=== PATIENT | male | born 1945 | race Caucasian/White ===

== ENCOUNTER 2017-01-30 09:14 | Outpatient (CLI) | payer MEDICARE ==
[2017-01-30 10:12] LABS: ALT (SGPT) 8 U/L (8-55); AST (SGOT) 11 U/L (5-34); Alkaline Phosphatase 88 U/L (40-150); Anion Gap 13 mmol/L (10-20); BUN (Urea Nitrogen) 22 mg/dL (8.4-25.7); Bilirubin, Total 0.4 mg/dL (0.2-1.2); Calc. Creatinine Clearance 0 mL/min (70-130); Calcium 9.1 mg/dL (7.8-10.44); Carbon Dioxide 26 mmol/L (23-31); Cardiac Risk 2.6 (Less than 4.5); Chloride 106 mmol/L (98-107); Cholesterol 136 mg/dl (< 200 Desired); Estimated GFR-MDRD 61; Globulin 3.6 g/dL (2.4-3.5); Glucose 158 mg/dL (83-110); HDL Cholesterol 52 mg/dL (>60 Neg Risk); LDL Cholesterol, Calculated 68 mg/dL; Magnesium 1.9 mg/dL (1.6-2.6); Potassium 4.3 mmol/L (3.5-5.1); Protein, Total 7.6 g/dL (5.8-8.1); Sodium 141 mmol/L (136-145); Triglycerides 78 mg/dL (Less than 150)
== END 2017-01-30 09:15 | disposition home or self-care (01) ==
LOC: MADLAB 09:14
DX: E11.9 Type 2 diabetes mellitus without complications (principal); I34.8 Other nonrheumatic mitral valve disorders; I25.10 Atherosclerotic heart disease of native coronary artery without angina pectoris; I50.22 Chronic systolic (congestive) heart failure
CPT/HCPCS: 36415; 80053; 80061; 83735

== ENCOUNTER 2017-02-03 10:28 | Outpatient (CLI) | payer MEDICARE ==
[2017-02-03 11:02] LABS: Hemoglobin 11.5 g/dL (14.0-18.0); Mean Corpuscular HGB CONC 30.9 g/dL (32.0-36.0); Mean Corpuscular Hemoglobin 24.9 pg (27.0-31.0); Mean Corpuscular Volume 80.6 fl (80.0-94.0); Mean Platelet Volume 7.8 fL (7.4-10.4); Platelet Count 251 thou/uL (130-400); RBC Distribution Width 16.1 % (11.5-14.5); Red Blood Cell (RBC) Count 4.62 mill/uL (4.70-6.10); White Blood Cell (WBC) Count 9.3 thou/uL (4.8-10.8)
[2017-02-03 15:42] LABS: ALT (SGPT) 9 U/L (8-55); AST (SGOT) 13 U/L (5-34); Albumin 3.8 g/dL (3.4-4.8); Alkaline Phosphatase 83 U/L (40-150); Anion Gap 14 mmol/L (10-20); BUN (Urea Nitrogen) 26 mg/dL (8.4-25.7); Bilirubin, Total 0.3 mg/dL (0.2-1.2); Calc. Creatinine Clearance 0 mL/min (70-130); Calcium 9.2 mg/dL (7.8-10.44); Carbon Dioxide 26 mmol/L (23-31); Chloride 105 mmol/L (98-107); Estimated GFR-MDRD 55; Globulin 3.1 g/dL (2.4-3.5); Glucose 143 mg/dL (83-110); Potassium 4.6 mmol/L (3.5-5.1); Protein, Total 6.9 g/dL (5.8-8.1); Sodium 140 mmol/L (136-145)
== END 2017-02-03 10:29 | disposition home or self-care (01) ==
LOC: MADLAB 10:28
PROVIDERS: ATTEND Internal Medicine Cardiovascular Disease
DX: E87.1 Hypo-osmolality and hyponatremia (principal); I70.219 Atherosclerosis of native arteries of extremities with intermittent claudication, unspecified extremity; I25.10 Atherosclerotic heart disease of native coronary artery without angina pectoris; I95.89 Other hypotension
CPT/HCPCS: 36415; 80053; 85027

== ENCOUNTER 2017-04-06 11:53 | Outpatient (CLI) | payer MEDICARE ==
[2017-04-06 12:31] LABS: #Basophils 0.1 thou/uL (0.0-0.2); #Eosinphils 0.3 thou/uL (0.0-0.7); #Lymphocytes 2.5 thou/uL (1.20-3.40); #Monocytes 0.8 thou/uL (0.11-0.59); %Basophils 1.4 % (0.0-1.0); %Eosinophils 2.7 % (0.0-10.0); %Lymphocytes 25.8 % (21.0-51.0); %Monocytes 8.4 % (0.0-10.0); %Neutrophils 61.7 % (42.0-75.0); Hemoglobin 11.4 g/dL (14.0-18.0); Mean Corpuscular HGB CONC 31.6 g/dL (32.0-36.0); Mean Corpuscular Hemoglobin 25.3 pg (27.0-31.0); Mean Corpuscular Volume 80.3 fl (80.0-94.0); Mean Platelet Volume 7.9 fL (7.4-10.4); Platelet Count 244 thou/uL (130-400); RBC Distribution Width 16.5 % (11.5-14.5); Red Blood Cell (RBC) Count 4.49 mill/uL (4.70-6.10); White Blood Cell (WBC) Count 9.8 thou/uL (4.8-10.8)
[2017-04-06 12:34] LABS: INR-International Normal Ratio 1.1; PTT 31.1 SEC (22.9-36.1); Prothrombin Time 14.1 SEC (12.0-14.7)
[2017-04-06 12:42] LABS: Anion Gap 16 mmol/L (10-20); BUN (Urea Nitrogen) 34 mg/dL (8.4-25.7); Calc. Creatinine Clearance 0 mL/min (70-130); Calcium 8.8 mg/dL (7.8-10.44); Carbon Dioxide 23 mmol/L (23-31); Chloride 106 mmol/L (98-107); Estimated GFR-MDRD 52; Glucose 164 mg/dL (83-110); Potassium 4.6 mmol/L (3.5-5.1); Sodium 140 mmol/L (136-145)
== END 2017-04-06 11:54 | disposition home or self-care (01) ==
LOC: MADLAB 11:53
PROVIDERS: ATTEND Internal Medicine Cardiovascular Disease
DX: I11.9 Hypertensive heart disease without heart failure (principal); I34.0 Nonrheumatic mitral (valve) insufficiency; E78.2 Mixed hyperlipidemia
CPT/HCPCS: 36415; 80048; 85025; 85610; 85730

== ENCOUNTER 2017-09-08 15:50 | Inpatient (IN) | payer MEDICARE ==
[2017-09-08] MEDS ORDERED: Acetaminophen 325 MG TAB PO PRN (18:22)
[2017-09-08] MEDS ORDERED: Guaifenesin DM 100-10/5 ML UDCUP PO PRN (18:22)
[2017-09-08] MEDS ORDERED: Ondansetron ODT 4 MG TAB PO PRN (18:22)
[2017-09-08] MEDS ORDERED: Dextrose 50% Abboject 50 ML SYRINGE SLOW IVP PRN (18:27)
[2017-09-08] MEDS ORDERED: Dextrose 5% in Water 1,000 ML IV PRN (18:27)
[2017-09-08] MEDS: Brimonidine Tartrate 0.2% Ophth Soln 5 ml Bottle R EYE SCH (20:59)
[2017-09-08] MEDS ORDERED: DIPHENHYDRAMINE PO SCH (21:00)
[2017-09-08] MEDS ORDERED: NAPROXEN SOD PO SCH (21:00)
[2017-09-08] MEDS ORDERED: Non-Formulary Item 1 EACH (Travoprost [Travatan Z] 1 DROP) EA EYE SCH (21:00)
[2017-09-08] MEDS: Dorzolamide HCl 2% Ophth Soln 10 ml Bottle L EYE SCH (21:00)
[2017-09-08] MEDS: Docusate 100 MG CAP PO SCH (21:00)
[2017-09-08] MEDS: Carvedilol 3.125 MG TAB PO SCH (21:00)
[2017-09-08] MEDS: Oseltamivir 75 MG CAP PO SCH (21:01)
[2017-09-08] MEDS: Pravastatin Sodium 20 MG TAB PO SCH (21:02)
[2017-09-08] MEDS: Latanoprost 0.005% Ophth Soln 2.5 ml Bottle EA EYE SCH (21:02)
[2017-09-08] MEDS: diphenhydrAMINE 25 MG CAP PO SCH (22:18)
[2017-09-08] MEDS: Naproxen 500 MG TAB PO SCH (22:18)
[2017-09-08] MEDS: HumaLOG 300 UNITS/3 ML VIAL SC PRN (22:19)
--- NOTE | 2017-09-09 00:18 | HP ---
DATE OF ADMISSION: 09/08/2017 ADMITTING PHYSICIAN: Pili Cardenas M.D. PRIMARY CARE PHYSICIAN: Out of town. REASON FOR ADMISSION: Skilled rehabilitation at [facility] swing bed, status post influenzae type A, generalized weakness, acute respiratory failure. HISTORY OF PRESENT ILLNESS: Mr. Clarence Harvey is a 72-year-old male with a past medical history of CAD with stent, diabetes type 2, hypertension, TIA x2. The patient presented to the ED on 09/04/2017 via EMS with his brother and due to shortness of breath and generalized weakness. Upon arrival in the emergency room, O2 sats was noted to be in the 60s and 70s. The patient was evaluated and noted to be positive for influenza A. The patient's states he has been very weak and the day before he was so weak that he fell and was unable to get himself for about 30 minutes. The patient was subsequently transferred to [facility] in [place] and he was started on Tamiflu 75 b.i.d. The patient was placed on BiPAP overnight and was able to taper the patient down to nasal cannula, which he is tolerating fine. The patient was also started on Levaquin and steroids. He was noted to have elevated troponins. He was evaluated by Cardiology, and echocardiogram done, which showed an EF that was normal and doughnut icer noted elevated troponin, was most likely due to type 2 diabetes and [place] with demand ischemia. The patient 's condition slowly improved, but he was noted to be very weak. Due to this patient, the decision was made to transfer the patient to skilled rehabilitation for physical therapy and occupational therapy prior to discharge back to his home. Upon evaluation of patient today, he was happy to be in facility, was present in the room. The patient denies any nausea, vomiting. Complains of constipation, complains of cough and complains of generalized weakness. Denies any abdominal pain, denies fever, denies chest pain. PAST MEDICAL HISTORY: CAD, hypertension, hyperlipidemia, diabetes type 2, TIA, glaucoma, CAD. PAST SURGICAL HISTORY: No pertinent surgical history. SOCIAL HISTORY: The patient lives in a home with his . Denies any tobacco use. Occasional alcohol use recreationally. MEDICATIONS: Carvedilol 3.125 b.i.d., Plavix 75 daily, losartan 25 daily, pravastatin 10 daily, Flomax 0.4 daily, metformin 500 b.i.d., aspirin 81 mg daily, brimonidine 1 drop to both eyes b.i.d., dorzolamide 1 drop to both eyes b.i.d., latanoprost 1 drop to both eyes at bedtime, Lasix 20 mg daily, Zyrtec 10 mg daily. ALLERGIES: PENICILLIN and ADHESIVE TAPE. CODE STATUS: FULL CODE. REVIEW OF SYSTEMS: General: The patient denies any fever, complains of generalized weakness. HEENT: No vision changes, hearing changes, or dysphagia. Respiratory: Complains of cough, shortness of breath, and wheezing. Chest: Denies any chest pain, palpitation, or dizziness. Abdomen: Denies any abdominal pain. Complains of constipation. States he has not had a bowel movement since 4 days. Genitourinary: Denies dysuria or hematuria. Skin : Complains of multiple bruising from fall and hospitalization. Musculoskeletal: Complains of generalized weakness. Neurological: Denies any memory loss, hallucination or delusion. PHYSICAL EXAMINATION: VITAL SIGNS: Temperature 97.3, pulse 94, respirations 18, O2 sat 86% on room air, 96% on 2 liters nasal cannula, and blood pressure 124/68. GENERAL: Alert, awake, oriented x3, pleasant, lying up in bed, having his dinner. HEENT: Normocephalic, atraumatic. PERRL, nonicteric sclerae. Oral mucous membranes moist. NECK: Supple. No JVD. CARDIAC: S1, S2, no murmurs, no carotid bruit. RESPIRATORY: Bilateral wheezing. Good air movement. ABDOMEN: Positive bowel sounds, nontender, nondistended. SKIN: Multiple bruising in the upper extremities. NEUROLOGICAL: Alert, awake, oriented x3. Cranial nerves II-XII grossly intact. ASSESSMENT: 1. Physical debility. 2. Influenza type A. 3. Acute kidney injury. 4. Acute respiratory failure with hypoxia. 5. Hypertension. 6. Diabetes type 2. PLAN: The patient is to be admitted to [facility] swing bed for rehabilitation and get training. We will consult physical therapy for strengthening in order to gain modified independence with gait and occupational therapy to help with activities of daily living prior to returning to [facility]. We will restart home medication. We will complete Tamiflu, Levaquin and prednisone. We will restart patient on his metformin. We will put patient on a sliding scale a.c. and at bedtime. We will continue Lovenox for DVT prophylaxis and Protonix for GI prophylaxis for his constipation. We will place patient on Colace b.i.d. and p.r.n. stool softener. We will monitor the patient closely for any medical comorbidities that may interfere with his recovery. EXTENDED LENGTH OF STAY: 2 to 3 weeks. DISPOSITION: Home. CODE STATUS: FULL CODE. MTDD
[2017-09-09] MEDS: metFORMIN 500 MG TAB PO SCH ×2 (08:01→17:09)
[2017-09-09] MEDS: Brimonidine Tartrate 0.2% Ophth Soln 5 ml Bottle R EYE SCH ×2 (08:01→20:47)
[2017-09-09] MEDS: Clopidogrel Bisulfate 75 MG TAB PO SCH (08:02)
[2017-09-09] MEDS: Carvedilol 3.125 MG TAB PO SCH ×2 (08:02→20:42)
[2017-09-09] MEDS: HumaLOG 300 UNITS/3 ML VIAL SC PRN ×4 (08:03→20:58)
[2017-09-09] MEDS: predniSONE 10 MG TAB PO SCH (08:03)
[2017-09-09] MEDS: Furosemide 20 MG TAB PO SCH (08:03)
[2017-09-09] MEDS: Tamsulosin HCl 0.4 MG CAP PO SCH (08:03)
[2017-09-09] MEDS: Loratadine 10 MG TAB PO SCH (08:03)
[2017-09-09] MEDS: Losartan 25 MG TAB PO SCH (08:03)
[2017-09-09] MEDS: Oseltamivir 75 MG CAP PO SCH ×2 (08:03→20:38)
[2017-09-09] MEDS: Docusate 100 MG CAP PO SCH ×2 (08:04→20:38)
[2017-09-09] MEDS: Dorzolamide HCl 2% Ophth Soln 10 ml Bottle L EYE SCH ×2 (08:04→20:49)
[2017-09-09] MEDS: Enoxaparin Sodium 40 MG/0.4 ML SYRINGE SC SCH (08:05)
[2017-09-09] MEDS: diphenhydrAMINE 25 MG CAP PO SCH (20:39)
[2017-09-09] MEDS: Naproxen 500 MG TAB PO SCH (20:39)
[2017-09-09] MEDS: Pravastatin Sodium 20 MG TAB PO SCH (20:41)
[2017-09-09] MEDS: Latanoprost 0.005% Ophth Soln 2.5 ml Bottle EA EYE SCH (20:48)
[2017-09-10] MEDS: Brimonidine Tartrate 0.2% Ophth Soln 5 ml Bottle R EYE SCH ×2 (09:04→20:26)
[2017-09-10] MEDS: metFORMIN 500 MG TAB PO SCH ×2 (09:04→17:03)
[2017-09-10] MEDS: Carvedilol 3.125 MG TAB PO SCH ×2 (09:05→20:27)
[2017-09-10] MEDS: Tamsulosin HCl 0.4 MG CAP PO SCH (09:05)
[2017-09-10] MEDS: Losartan 25 MG TAB PO SCH (09:05)
[2017-09-10] MEDS: Clopidogrel Bisulfate 75 MG TAB PO SCH (09:05)
[2017-09-10] MEDS: Docusate 100 MG CAP PO SCH ×2 (09:05→20:27)
[2017-09-10] MEDS: Loratadine 10 MG TAB PO SCH (09:05)
[2017-09-10] MEDS: Furosemide 20 MG TAB PO SCH (09:05)
[2017-09-10] MEDS: Enoxaparin Sodium 40 MG/0.4 ML SYRINGE SC SCH (09:06)
[2017-09-10] MEDS: Dorzolamide HCl 2% Ophth Soln 10 ml Bottle L EYE SCH ×2 (09:06→20:26)
[2017-09-10] MEDS: predniSONE 10 MG TAB PO SCH (09:06)
[2017-09-10] MEDS: HumaLOG 300 UNITS/3 ML VIAL SC PRN ×4 (09:07→20:25)
[2017-09-10] MEDS: Latanoprost 0.005% Ophth Soln 2.5 ml Bottle EA EYE SCH (20:26)
[2017-09-10] MEDS: Pravastatin Sodium 20 MG TAB PO SCH (20:26)
[2017-09-10] MEDS: Naproxen 500 MG TAB PO SCH (20:27)
[2017-09-10] MEDS: diphenhydrAMINE 25 MG CAP PO SCH (20:27)
[2017-09-11] MEDS: HumaLOG 300 UNITS/3 ML VIAL SC PRN ×4 (08:14→21:02)
[2017-09-11] MEDS: metFORMIN 500 MG TAB PO SCH ×2 (08:16→16:45)
[2017-09-11] MEDS: Docusate 100 MG CAP PO SCH ×2 (08:16→21:01)
[2017-09-11] MEDS: Furosemide 20 MG TAB PO SCH (08:16)
[2017-09-11] MEDS: Clopidogrel Bisulfate 75 MG TAB PO SCH (08:16)
[2017-09-11] MEDS: Tamsulosin HCl 0.4 MG CAP PO SCH (08:16)
[2017-09-11] MEDS: Losartan 25 MG TAB PO SCH (08:16)
[2017-09-11] MEDS: Loratadine 10 MG TAB PO SCH (08:16)
[2017-09-11] MEDS: Carvedilol 3.125 MG TAB PO SCH ×2 (08:16→21:01)
[2017-09-11] MEDS: Dorzolamide HCl 2% Ophth Soln 10 ml Bottle L EYE SCH ×2 (08:17→21:02)
[2017-09-11] MEDS: Brimonidine Tartrate 0.2% Ophth Soln 5 ml Bottle R EYE SCH ×2 (08:17→21:02)
[2017-09-11] MEDS: Enoxaparin Sodium 40 MG/0.4 ML SYRINGE SC SCH (08:18)
[2017-09-11] MEDS: Pravastatin Sodium 20 MG TAB PO SCH (21:01)
[2017-09-11] MEDS: Naproxen 500 MG TAB PO SCH (21:01)
[2017-09-11] MEDS: diphenhydrAMINE 25 MG CAP PO SCH (21:01)
[2017-09-11] MEDS: Latanoprost 0.005% Ophth Soln 2.5 ml Bottle EA EYE SCH (21:02)
[2017-09-12] MEDS: HumaLOG 300 UNITS/3 ML VIAL SC PRN ×4 (07:58→20:47)
[2017-09-12] MEDS: metFORMIN 500 MG TAB PO SCH ×2 (07:59→17:00)
[2017-09-12] MEDS: Furosemide 20 MG TAB PO SCH (08:00)
[2017-09-12] MEDS: Tamsulosin HCl 0.4 MG CAP PO SCH (08:00)
[2017-09-12] MEDS: Loratadine 10 MG TAB PO SCH (08:00)
[2017-09-12] MEDS: Enoxaparin Sodium 40 MG/0.4 ML SYRINGE SC SCH (08:00)
[2017-09-12] MEDS: Clopidogrel Bisulfate 75 MG TAB PO SCH (08:00)
[2017-09-12] MEDS: Carvedilol 3.125 MG TAB PO SCH ×2 (08:00→20:46)
[2017-09-12] MEDS: Docusate 100 MG CAP PO SCH ×2 (08:00→20:46)
[2017-09-12] MEDS: Losartan 25 MG TAB PO SCH (08:00)
[2017-09-12] MEDS: Dorzolamide HCl 2% Ophth Soln 10 ml Bottle L EYE SCH ×2 (08:01→20:47)
[2017-09-12] MEDS: Brimonidine Tartrate 0.2% Ophth Soln 5 ml Bottle R EYE SCH ×2 (09:22→20:47)
[2017-09-12] MEDS: Pravastatin Sodium 20 MG TAB PO SCH (20:46)
[2017-09-12] MEDS: Naproxen 500 MG TAB PO SCH (20:46)
[2017-09-12] MEDS: Latanoprost 0.005% Ophth Soln 2.5 ml Bottle EA EYE SCH (20:47)
[2017-09-12] MEDS: diphenhydrAMINE 25 MG CAP PO SCH (20:47)
[2017-09-13] MEDS: Furosemide 20 MG TAB PO SCH (09:29)
[2017-09-13] MEDS: Loratadine 10 MG TAB PO SCH (09:29)
[2017-09-13] MEDS: Docusate 100 MG CAP PO SCH ×2 (09:29→20:39)
[2017-09-13] MEDS: Carvedilol 3.125 MG TAB PO SCH ×2 (09:30→21:15)
[2017-09-13] MEDS: Tamsulosin HCl 0.4 MG CAP PO SCH (09:31)
[2017-09-13] MEDS: Losartan 25 MG TAB PO SCH (09:31)
[2017-09-13] MEDS: metFORMIN 500 MG TAB PO SCH ×2 (09:31→17:00)
[2017-09-13] MEDS: Enoxaparin Sodium 40 MG/0.4 ML SYRINGE SC SCH (09:32)
[2017-09-13] MEDS: Clopidogrel Bisulfate 75 MG TAB PO SCH (09:32)
[2017-09-13] MEDS: Dorzolamide HCl 2% Ophth Soln 10 ml Bottle L EYE SCH ×2 (09:33→20:39)
[2017-09-13] MEDS: Brimonidine Tartrate 0.2% Ophth Soln 5 ml Bottle R EYE SCH ×2 (09:34→20:39)
[2017-09-13] MEDS: HumaLOG 300 UNITS/3 ML VIAL SC PRN ×3 (12:05→20:37)
[2017-09-13] MEDS: diphenhydrAMINE 25 MG CAP PO SCH (20:38)
[2017-09-13] MEDS: Pravastatin Sodium 20 MG TAB PO SCH (20:38)
[2017-09-13] MEDS: Naproxen 500 MG TAB PO SCH (20:38)
[2017-09-13] MEDS: Latanoprost 0.005% Ophth Soln 2.5 ml Bottle EA EYE SCH (20:39)
[2017-09-13] MEDS ORDERED: HumaLOG 300 UNITS/3 ML VIAL SC SCH (21:15)
[2017-09-14] MEDS: Brimonidine Tartrate 0.2% Ophth Soln 5 ml Bottle R EYE SCH ×2 (08:17→20:33)
[2017-09-14] MEDS: metFORMIN 500 MG TAB PO SCH ×2 (08:17→16:48)
[2017-09-14] MEDS: Loratadine 10 MG TAB PO SCH (08:18)
[2017-09-14] MEDS: Clopidogrel Bisulfate 75 MG TAB PO SCH (08:18)
[2017-09-14] MEDS: Carvedilol 3.125 MG TAB PO SCH ×2 (08:18→20:32)
[2017-09-14] MEDS: Docusate 100 MG CAP PO SCH ×2 (08:18→20:34)
[2017-09-14] MEDS: Furosemide 20 MG TAB PO SCH (08:18)
[2017-09-14] MEDS: Losartan 25 MG TAB PO SCH (08:18)
[2017-09-14] MEDS: Tamsulosin HCl 0.4 MG CAP PO SCH (08:18)
[2017-09-14] MEDS: Dorzolamide HCl 2% Ophth Soln 10 ml Bottle L EYE SCH ×2 (08:19→20:34)
[2017-09-14] MEDS: HumaLOG 300 UNITS/3 ML VIAL SC PRN ×3 (08:19→20:34)
[2017-09-14] MEDS: Pravastatin Sodium 20 MG TAB PO SCH (20:32)
[2017-09-14] MEDS: diphenhydrAMINE 25 MG CAP PO SCH (20:33)
[2017-09-14] MEDS: Naproxen 500 MG TAB PO SCH (20:33)
[2017-09-14] MEDS: Latanoprost 0.005% Ophth Soln 2.5 ml Bottle EA EYE SCH (20:33)
[2017-09-15] MEDS: metFORMIN 500 MG TAB PO SCH ×2 (08:14→17:20)
[2017-09-15] MEDS: Furosemide 20 MG TAB PO SCH (08:16)
[2017-09-15] MEDS: Carvedilol 3.125 MG TAB PO SCH ×2 (08:16→20:26)
[2017-09-15] MEDS: Docusate 100 MG CAP PO SCH ×2 (08:16→20:24)
[2017-09-15] MEDS: Clopidogrel Bisulfate 75 MG TAB PO SCH (08:16)
[2017-09-15] MEDS: Tamsulosin HCl 0.4 MG CAP PO SCH (08:16)
[2017-09-15] MEDS: Loratadine 10 MG TAB PO SCH (08:17)
[2017-09-15] MEDS: Brimonidine Tartrate 0.2% Ophth Soln 5 ml Bottle R EYE SCH ×2 (08:17→20:24)
[2017-09-15] MEDS: Losartan 25 MG TAB PO SCH (08:17)
[2017-09-15] MEDS: HumaLOG 300 UNITS/3 ML VIAL SC PRN ×4 (08:18→20:26)
[2017-09-15] MEDS: Dorzolamide HCl 2% Ophth Soln 10 ml Bottle L EYE SCH ×2 (08:18→20:23)
[2017-09-15 11:33] LABS: Hemoglobin A1c 8.8 % (4.0-6.0)
[2017-09-15] MEDS: Latanoprost 0.005% Ophth Soln 2.5 ml Bottle EA EYE SCH (20:24)
[2017-09-15] MEDS: Pravastatin Sodium 20 MG TAB PO SCH (20:25)
[2017-09-15] MEDS: Naproxen 500 MG TAB PO SCH (20:25)
[2017-09-15] MEDS: diphenhydrAMINE 25 MG CAP PO SCH (20:26)
[2017-09-16] MEDS: Docusate 100 MG CAP PO SCH ×2 (08:17→20:04)
[2017-09-16] MEDS: Losartan 25 MG TAB PO SCH (08:17)
[2017-09-16] MEDS: Carvedilol 3.125 MG TAB PO SCH ×2 (08:18→20:04)
[2017-09-16] MEDS: Dorzolamide HCl 2% Ophth Soln 10 ml Bottle L EYE SCH ×2 (08:18→20:02)
[2017-09-16] MEDS: Furosemide 20 MG TAB PO SCH (08:18)
[2017-09-16] MEDS: Clopidogrel Bisulfate 75 MG TAB PO SCH (08:18)
[2017-09-16] MEDS: Tamsulosin HCl 0.4 MG CAP PO SCH (08:18)
[2017-09-16] MEDS: Loratadine 10 MG TAB PO SCH (08:18)
[2017-09-16] MEDS: metFORMIN 500 MG TAB PO SCH ×2 (08:18→17:17)
[2017-09-16] MEDS: Brimonidine Tartrate 0.2% Ophth Soln 5 ml Bottle R EYE SCH ×2 (08:19→20:02)
[2017-09-16] MEDS: HumaLOG 300 UNITS/3 ML VIAL SC PRN ×3 (08:21→20:05)
[2017-09-16] MEDS: Latanoprost 0.005% Ophth Soln 2.5 ml Bottle EA EYE SCH (20:02)
[2017-09-16] MEDS: diphenhydrAMINE 25 MG CAP PO SCH (20:03)
[2017-09-16] MEDS: Naproxen 500 MG TAB PO SCH (20:03)
[2017-09-16] MEDS: Pravastatin Sodium 20 MG TAB PO SCH (20:04)
[2017-09-17] MEDS: Tamsulosin HCl 0.4 MG CAP PO SCH (08:20)
[2017-09-17] MEDS: Losartan 25 MG TAB PO SCH (08:20)
[2017-09-17] MEDS: Furosemide 20 MG TAB PO SCH (08:20)
[2017-09-17] MEDS: Docusate 100 MG CAP PO SCH ×2 (08:20→20:52)
[2017-09-17] MEDS: metFORMIN 500 MG TAB PO SCH ×2 (08:20→17:30)
[2017-09-17] MEDS: Clopidogrel Bisulfate 75 MG TAB PO SCH (08:20)
[2017-09-17] MEDS: Carvedilol 3.125 MG TAB PO SCH ×2 (08:20→20:52)
[2017-09-17] MEDS: Loratadine 10 MG TAB PO SCH (08:21)
[2017-09-17] MEDS: Dorzolamide HCl 2% Ophth Soln 10 ml Bottle L EYE SCH ×2 (08:21→20:52)
[2017-09-17] MEDS: Brimonidine Tartrate 0.2% Ophth Soln 5 ml Bottle R EYE SCH ×2 (08:21→20:51)
[2017-09-17] MEDS: HumaLOG 300 UNITS/3 ML VIAL SC PRN ×3 (08:23→20:57)
[2017-09-17] MEDS: diphenhydrAMINE 25 MG CAP PO SCH (20:52)
[2017-09-17] MEDS: Latanoprost 0.005% Ophth Soln 2.5 ml Bottle EA EYE SCH (20:53)
[2017-09-17] MEDS: Naproxen 500 MG TAB PO SCH (20:54)
[2017-09-17] MEDS: Pravastatin Sodium 20 MG TAB PO SCH (20:54)
[2017-09-18] MEDS: metFORMIN 500 MG TAB PO SCH ×2 (08:20→17:13)
[2017-09-18] MEDS: Brimonidine Tartrate 0.2% Ophth Soln 5 ml Bottle R EYE SCH ×2 (08:20→20:37)
[2017-09-18] MEDS: Carvedilol 3.125 MG TAB PO SCH ×2 (08:21→20:40)
[2017-09-18] MEDS: Tamsulosin HCl 0.4 MG CAP PO SCH (08:21)
[2017-09-18] MEDS: Loratadine 10 MG TAB PO SCH (08:21)
[2017-09-18] MEDS: Dorzolamide HCl 2% Ophth Soln 10 ml Bottle L EYE SCH ×2 (08:21→20:38)
[2017-09-18] MEDS: Docusate 100 MG CAP PO SCH ×2 (08:21→20:42)
[2017-09-18] MEDS: Clopidogrel Bisulfate 75 MG TAB PO SCH (08:21)
[2017-09-18] MEDS: Losartan 25 MG TAB PO SCH (08:21)
[2017-09-18] MEDS: Furosemide 20 MG TAB PO SCH (08:21)
[2017-09-18] MEDS: HumaLOG 300 UNITS/3 ML VIAL SC PRN ×3 (08:22→17:14)
[2017-09-18] MEDS: Latanoprost 0.005% Ophth Soln 2.5 ml Bottle EA EYE SCH (20:39)
[2017-09-18] MEDS: diphenhydrAMINE 25 MG CAP PO SCH (20:41)
[2017-09-18] MEDS: Naproxen 500 MG TAB PO SCH (20:41)
[2017-09-18] MEDS: Pravastatin Sodium 20 MG TAB PO SCH (20:42)
[2017-09-19] MEDS: Carvedilol 3.125 MG TAB PO SCH ×2 (08:20→20:41)
[2017-09-19] MEDS: metFORMIN 500 MG TAB PO SCH ×2 (08:20→17:30)
[2017-09-19] MEDS: Tamsulosin HCl 0.4 MG CAP PO SCH (08:20)
[2017-09-19] MEDS: Loratadine 10 MG TAB PO SCH (08:20)
[2017-09-19] MEDS: Losartan 25 MG TAB PO SCH (08:20)
[2017-09-19] MEDS: Docusate 100 MG CAP PO SCH ×2 (08:20→20:42)
[2017-09-19] MEDS: Clopidogrel Bisulfate 75 MG TAB PO SCH (08:20)
[2017-09-19] MEDS: Furosemide 20 MG TAB PO SCH (08:20)
[2017-09-19] MEDS: Brimonidine Tartrate 0.2% Ophth Soln 5 ml Bottle R EYE SCH ×2 (08:20→20:43)
[2017-09-19] MEDS: HumaLOG 300 UNITS/3 ML VIAL SC PRN ×4 (08:21→20:43)
[2017-09-19] MEDS: Dorzolamide HCl 2% Ophth Soln 10 ml Bottle L EYE SCH ×2 (08:21→20:43)
[2017-09-19] MEDS: Naproxen 500 MG TAB PO SCH (20:41)
[2017-09-19] MEDS: diphenhydrAMINE 25 MG CAP PO SCH (20:42)
[2017-09-19] MEDS: Pravastatin Sodium 20 MG TAB PO SCH (20:42)
[2017-09-19] MEDS: Latanoprost 0.005% Ophth Soln 2.5 ml Bottle EA EYE SCH (20:42)
[2017-09-20] MEDS: Tamsulosin HCl 0.4 MG CAP PO SCH (08:06)
[2017-09-20] MEDS: Docusate 100 MG CAP PO SCH ×2 (08:06→21:40)
[2017-09-20] MEDS: Clopidogrel Bisulfate 75 MG TAB PO SCH (08:06)
[2017-09-20] MEDS: Loratadine 10 MG TAB PO SCH (08:07)
[2017-09-20] MEDS: metFORMIN 500 MG TAB PO SCH ×2 (08:08→18:38)
[2017-09-20] MEDS: Furosemide 20 MG TAB PO SCH (08:08)
[2017-09-20] MEDS: Carvedilol 3.125 MG TAB PO SCH ×2 (08:08→21:39)
[2017-09-20] MEDS: Losartan 25 MG TAB PO SCH (08:08)
[2017-09-20] MEDS: HumaLOG 300 UNITS/3 ML VIAL SC PRN ×3 (08:09→21:29)
[2017-09-20] MEDS: Brimonidine Tartrate 0.2% Ophth Soln 5 ml Bottle R EYE SCH ×2 (11:58→21:27)
[2017-09-20] MEDS: Dorzolamide HCl 2% Ophth Soln 10 ml Bottle L EYE SCH ×2 (11:58→21:27)
[2017-09-20] MEDS: Latanoprost 0.005% Ophth Soln 2.5 ml Bottle EA EYE SCH (21:28)
[2017-09-20] MEDS: Pravastatin Sodium 20 MG TAB PO SCH (21:38)
[2017-09-20] MEDS: diphenhydrAMINE 25 MG CAP PO SCH (21:39)
[2017-09-20] MEDS: Naproxen 500 MG TAB PO SCH (21:39)
[2017-09-21] MEDS: metFORMIN 500 MG TAB PO SCH ×2 (08:33→17:39)
[2017-09-21] MEDS: Docusate 100 MG CAP PO SCH ×2 (08:34→20:25)
[2017-09-21] MEDS: Clopidogrel Bisulfate 75 MG TAB PO SCH (08:34)
[2017-09-21] MEDS: Furosemide 20 MG TAB PO SCH (08:34)
[2017-09-21] MEDS: Loratadine 10 MG TAB PO SCH (08:34)
[2017-09-21] MEDS: Carvedilol 3.125 MG TAB PO SCH ×2 (08:34→20:26)
[2017-09-21] MEDS: Tamsulosin HCl 0.4 MG CAP PO SCH (08:34)
[2017-09-21] MEDS: Losartan 25 MG TAB PO SCH (08:34)
[2017-09-21] MEDS: Dorzolamide HCl 2% Ophth Soln 10 ml Bottle L EYE SCH ×2 (08:36→20:24)
[2017-09-21] MEDS: Brimonidine Tartrate 0.2% Ophth Soln 5 ml Bottle R EYE SCH ×2 (08:36→20:24)
[2017-09-21] MEDS: HumaLOG 300 UNITS/3 ML VIAL SC PRN ×3 (08:36→20:24)
[2017-09-21] MEDS: Latanoprost 0.005% Ophth Soln 2.5 ml Bottle EA EYE SCH (20:24)
[2017-09-21] MEDS: Pravastatin Sodium 20 MG TAB PO SCH (20:25)
[2017-09-21] MEDS: diphenhydrAMINE 25 MG CAP PO SCH (20:26)
[2017-09-21] MEDS: Naproxen 500 MG TAB PO SCH (20:26)
[2017-09-22] MEDS: metFORMIN 500 MG TAB PO SCH (08:16)
[2017-09-22] MEDS: Carvedilol 3.125 MG TAB PO SCH (09:16)
[2017-09-22] MEDS: Loratadine 10 MG TAB PO SCH (09:17)
[2017-09-22] MEDS: Clopidogrel Bisulfate 75 MG TAB PO SCH (09:17)
[2017-09-22] MEDS: Losartan 25 MG TAB PO SCH (09:17)
[2017-09-22] MEDS: Docusate 100 MG CAP PO SCH (09:17)
[2017-09-22] MEDS: Furosemide 20 MG TAB PO SCH (09:17)
[2017-09-22] MEDS: Tamsulosin HCl 0.4 MG CAP PO SCH (09:17)
[2017-09-22] MEDS: Dorzolamide HCl 2% Ophth Soln 10 ml Bottle L EYE SCH (09:18)
[2017-09-22] MEDS: Brimonidine Tartrate 0.2% Ophth Soln 5 ml Bottle R EYE SCH (09:18)
[2017-09-22] MEDS: HumaLOG 300 UNITS/3 ML VIAL SC PRN ×2 (09:22→12:15)
[2017-09-22 09:34] VITALS: BP 151/74; TEMP 97.2
[2017-09-22 09:52] VITALS: BMI 28.3
--- NOTE | 2017-09-23 07:43 | DIS ---
DATE OF ADMISSION: 09/08/2017 DATE OF DISCHARGE: 09/22/2017 DISCHARGING PHYSICIAN: Pili Cardenas M.D. DISCHARGE DIAGNOSES: 1. Physical deconditioning, improving. 2. Influenza type A, resolved. 3. Acute kidney injury, resolved. 4. Acute respiratory failure with hypoxia, resolved. 5. Type 2 diabetes, uncontrolled. 6. Hypertension. 7. Legally blind. DISCHARGE MEDICATIONS: Carvedilol 3.125 b.i.d., Plavix 75 daily, losartan 25 daily, pravastatin 10 daily, Flomax 0.4 daily, metformin 1000 b.i.d., aspirin 81 mg daily, brimonidine 1 drop to both eyes, dorzolamide 1 drops to both eyes, latanoprost 1 drop to both eyes, Lasix 20 daily, Zyrtec 10 daily. DISCHARGE INSTRUCTIONS: 1. Follow up with primary care physician within 1 week. 2. Follow up with range rider within the next 2 weeks for adequate diabetic control. 3. Start outpatient physical therapy to improve gait strengthening. 4. Physical ambulation with 4-wheeled rolling walker at all times. 5. Diabetic diet. DISCHARGE DISPOSITION: Home. CODE STATUS: FULL CODE. HOSPITAL COURSE: Mr. Harvey is a 72-year-old male with a history of CAD with stent, diabetes type 2, hypertension, TIA x 2, legally blindness, who lives in a home with his . Patient was taken to the emergency room on via EMS due to generalized weakness, shortness of breath, and falls. Patient was noted to have O2 sat in his 60s and 70s. He was diagnosed an influenza type A with superimposed pneumonia. Patient was admitted to [facility], where he was started on Tamiflu b.i.d. Patient was initially placed on BiPAP, but was tapered down to oxygen via nasal cannula. He was started on Levaquin and steroids. Patient's O2 increased with the use of nasal cannula, but during hospitalization, he was noted to have elevated troponin and was eventually evaluated by Cardiology, who stated he did have a mild PR due to demand ischemia caused by the flu. Patient was subsequently transferred to [facility] for physical therapy prior to discharge back to his home as he was noted to be severely deconditioned. He was able to be weaned off his oxygen, he completed his Levaquin, Tamiflu, and his steroids and his respiratory status improved significantly. Patient was severely deconditioned and initially was initially not very motivated to participate in physical therapy, but with continuous encouragement and help from his spouse, he progressively improved. Patient was subsequently discharged home with his spouse in a stable condition. On the day of discharge , he was able to walk 150 foot with a rolling walker without any distress. Patient and requested to continue therapy here in [facility] as an outpatient. During hospitalization his diabetes was noted to be uncontrolled. His metformin was increased from 500mg BID to 1000mg BID. noted to make followup appointment with his range rider for adequate control. DISCHARGE VITAL SIGNS: Temperature 97.2, pulse 76, oxygen 93% on room air, respiration 20, blood pressure 151/74. MTDD
== END 2017-09-22 14:20 | disposition home or self-care (01) | DRG 947 ==
LOC: MADMS 15:50
PROVIDERS: ADMIT Family Medicine; ATTEND Family Medicine
DX: R53.1 Weakness (principal); J96.01 Acute respiratory failure with hypoxia; I21.A1 Myocardial infarction type 2; J10.00 Influenza due to other identified influenza virus with unspecified type of pneumonia; N17.9 Acute kidney failure, unspecified; I25.10 Atherosclerotic heart disease of native coronary artery without angina pectoris; Z95.5 Presence of coronary angioplasty implant and graft; I10 Essential (primary) hypertension; Z86.73 Personal history of transient ischemic attack (TIA), and cerebral infarction without residual deficits; E78.5 Hyperlipidemia, unspecified; Z79.01 Long term (current) use of anticoagulants; Z79.84 Long term (current) use of oral hypoglycemic drugs; Z79.82 Long term (current) use of aspirin; Z88.0 Allergy status to penicillin; Z91.048 Other nonmedicinal substance allergy status; H54.8 Legal blindness, as defined in USA; E11.65 Type 2 diabetes mellitus with hyperglycemia
CPT/HCPCS: 36415; 36416; 83036; 94640; J1650; J7512; J7620